=== PATIENT | male | born 1990 | race Caucasian/White ===

== ENCOUNTER 2021-12-19 15:01 | Observation (INO) ==
[2021-12-19 15:52] LABS: Basophils # 0.1 K/mcL (0.0-0.2); Basophils % 0.7 %; Eosinophils # 0.2 K/mcL (0.0-0.6); Eosinophils % 2.3 %; Hematocrit 40.9 % (37.5-50.1); Hemoglobin 13.5 g/dL (12.9-16.9); Immature Granulocytes % 0.3 % (0-4); Lymphocytes # 1.9 K/mcL (0.6-4.6); Lymphocytes % 26.1 %; Mean Corpuscular Hemoglobin 29.5 pg (28.0-33.3); Mean Corpuscular Volume 89.5 fL (83.0-100.0); Mean Platelet Volume 9.4 fL (9.4-12.4); Monocytes # 0.6 K/mcL (0.0-1.3); Monocytes % 8.1 %; Neutrophils # 4.5 K/mcL (1.6-8.9); Platelet Count 376 K/mcL (140-400); Red Blood Count 4.57 M/mcL (4.19-5.50); Red Cell Distribution Width 13.2 % (11.5-14.5); Segmented Neutrophils % 62.5 %; White Blood Count 7.3 K/mcL (4.3-11.1)
[2021-12-19 16:50] LABS: Estimated Average Glucose 111 mg/dl; Hemoglobin A1C 5.5 %
[2021-12-19 19:02] LABS: Bilirubin,Urine Negative (Negative); Blood,Urine Negative (Negative); Clarity,Urine Clear (Clear); Color,Urine Yellow (Yellow); Glucose,Urine (UA) Normal (Normal); Ketones,Urine Trace mg/dL (Negative); Leukocyte Esterase,Urine Negative (Negative); Nitrite,Urine Negative (Negative); PH,Urine 6.5 pH Units (5.0-8.0); Protein,Urine Trace mg/dL (Neg-Trace); Specific Gravity,Urine 1.014 (1.010-1.025)
[2021-12-19 19:13] LABS: Amphetamine Screen,Urine Negative ng/mL (Cutoff=1000); Barbiturate Screen,Urine Negative ng/mL (Cutoff=200); Benzodiazepines Screen,Urine Negative ng/mL (Cutoff=200); Cannabinoid Screen,Urine Positive ng/mL (Cutoff = 50); Cocaine Screen,Urine Negative ng/mL (Cutoff= 300); Opiate Screen,Urine Negative ng/mL (Cutoff=300); Phencyclidine Screen,Urine Negative ng/mL (Cutoff=25)
[2021-12-19 21:53] LABS: Acetaminophen < 10 mcg/mL (10-20); Alanine Aminotransferase 20 Units/L (7-52); Albumin 3.7 g/dL (3.5-5.7); Albumin/Globulin Ratio 1.4 (1.1-2.2); Alkaline Phosphatase 69 Units/L (34-104); Aspartate Amino Transferase 57 Units/L (13-39); BUN/Creatinine Ratio 8 (6-26); Bilirubin,Direct 0.2 mg/dL (0.0-0.2); Bilirubin,Indirect 0.7 mg/dL (0.0-1.0); Bilirubin,Total 0.9 mg/dL (0.3-1.0); Blood Urea Nitrogen 7 mg/dL (6-20); Calcium 8.7 mg/dL (8.6-10.3); Carbon Dioxide 28 mEq/L (23-29); Chloride 102 mEq/L (98-107); Chol/HDL Ratio 2.1 (0-4.9); Cholesterol 118 mg/dL (< 200); Ethanol 178 mg/dL (Less than 10); Globulin 2.7 g/dL (2.4-3.5); Glucose 101 mg/dL (70-105); HDL Cholesterol 57 mg/dL (40-59); LDL Cholesterol,Calculated 46 mg/dL (< 100); Osmolality,Calculated 286 (280-300); Potassium 3.6 mEq/L (3.5-5.1); Salicylate < 2.5 mg/dL (15.0-30.0); Sodium 139 mEq/L (136-145); Total Protein 6.4 g/dL (6.4-8.9); Triglycerides 75 mg/dL (< 150)
[2021-12-19 22:05] LABS: Thyroid Stimulating Hormone 1.165 mcIU/mL (0.340-5.600)
[2021-12-19] MEDS ORDERED: *HR* LORazepam 2 MG/ML VIAL IVP PRN (23:39)
[2021-12-19] MEDS ORDERED: *HR* LORazepam 2 MG/ML VIAL IVP ONE (23:46)
[2021-12-19] MEDS ORDERED: Ketorolac 30 MG/ML VIAL IM PRN (23:48)
[2021-12-19] MEDS ORDERED: Ondansetron 4 MG/2 ML VIAL IVP PRN (23:48)
[2021-12-19] MEDS ORDERED: Melatonin 3 MG TABLET PO PRN (23:48)
[2021-12-19] MEDS ORDERED: Acetaminophen 325 MG TABLET PO PRN (23:48)
[2021-12-19] MEDS ORDERED: Naloxone 0.4 MG/ML INJ IVP PRN (23:48)
[2021-12-20] MEDS ORDERED: Haloperidol Lactate 5 MG/ML VIAL IM ONE (00:11)
[2021-12-20] MEDS: *HR* LORazepam 1 MG TABLET PO PRN ×3 (08:08→18:28)
[2021-12-20 15:39] LABS: INR 1.2; Prothrombin Time 13.9 Seconds (9.4-12.1)
[2021-12-20 15:45] LABS: Albumin 4.1 g/dL (3.5-5.7); Albumin/Globulin Ratio 1.3 (1.1-2.2); Bilirubin,Direct 0.2 mg/dL (0.0-0.2); Bilirubin,Indirect 1.3 mg/dL (0.0-1.0); Bilirubin,Total 1.5 mg/dL (0.3-1.0); Globulin 3.2 g/dL (2.4-3.5); Total Protein 7.3 g/dL (6.4-8.9)
[2021-12-20] MEDS ORDERED: Thiamine (B-1) 100 MG, Folic Acid 1 MG, MVI, adult with vitamin K 10 ML in 0.9 % Sodi... IVPB SCH (18:00)
[2021-12-20] MEDS: *HR* LORazepam 1 MG TABLET PO SCH (20:41)
[2021-12-20] MEDS: *HR* LORazepam 2 MG/ML VIAL IVP PRN (21:41)
[2021-12-20] MEDS ORDERED: Melatonin 3 MG TABLET PO PRN (23:14)
[2021-12-20] MEDS ORDERED: traZODone 50 MG TABLET PO PRN (23:14)
[2021-12-20] MEDS ORDERED: PARoxetine 20 MG TABLET PO SCH ×2 (23:15→23:45)
[2021-12-20] MEDS: Gabapentin 300 MG CAPSULE PO SCH (23:46)
[2021-12-21] MEDS: *HR* LORazepam 2 MG/ML VIAL IVP PRN ×2 (00:04→11:52)
[2021-12-21 07:34] VITALS: BP 134/68; PULSE 67; TEMP 97.6; O2SAT 98
[2021-12-21] MEDS: *HR* LORazepam 1 MG TABLET PO PRN (08:09)
[2021-12-21] MEDS: Gabapentin 300 MG CAPSULE PO SCH (08:09)
[2021-12-21] MEDS: *HR* LORazepam 1 MG TABLET PO SCH ×2 (08:09→15:13)
== END 2021-12-21 16:00 | disposition home or self-care (01) ==
LOC: EMEROOARM 15:01 → 3NENU 15:01 → SUATTDRO 23:59 → 3NENU 12-20 01:36
PROVIDERS: ADMIT Internal Medicine; ATTEND Student in an Organized Health Care Education/Training Program